=== PATIENT | male | born 1970 | race American Indian/Alaskan Native ===

== ENCOUNTER 2020-12-26 08:32 | Emergency (ER) | payer SELFPAY ==
--- NOTE | 2020-12-26 08:54 | Emergency Department Report ---
ED Asthma HPI - General Stated Complaint: ASTHMA PUI?: Yes Time Seen by Provider: 12/26/20 08:53 Source: patient Mode of arrival: Ambulatory Limitations: No Limitations - History of Present Illness Initial Comments: 50-year-old male with a past medical history of asthma and endocarditis (dx 15yrs ago) presents to the ER today with complaints of asthma attack. Patient states his symptoms started last night. Patient states that he has used his albuterol MDI several times without relief. He does have a nebulizer machine at home but states that it was not working. He reports cough, wheezing, chest tightness and mild shortness of breath. Patient denies any recent fever, or URI symptoms. He states that the last time he was admitted for his asthma was when he was a teenager. He reports no other symptoms at this time. MD Complaint: "asthma attack" -: Sudden (last night ) - Related Data Previous Rx's Medication Instructions Recorded Last Taken Type Albuterol Mdi (or & Nicu Only) 2 puff IH QID PRN #8.5 gram 12/26/20 Unknown Rx [ProAir HFA Inhaler] predniSONE [Deltasone] 20 mg PO QDAY #12 tab 12/26/20 Unknown Rx Allergies Allergy/AdvReac Type Severity Reaction Status Date / Time No Known Allergies Allergy Unverified 12/26/20 09:24 ED Review of Systems ROS: Stated complaint: ASTHMA Other details as noted in HPI Comment: All other systems reviewed and negative Constitutional: denies: chills, fever Eyes: denies: eye pain, eye discharge, vision change ENT: denies: ear pain, throat pain, dental pain, hearing loss, epistaxis, congestion Respiratory: cough, shortness of breath, wheezing Cardiovascular: other (chest tightness ) Gastrointestinal: denies: abdominal pain, nausea, diarrhea, constipation, hematemesis, melena, hematochezia Genitourinary: denies: urgency, dysuria, frequency, hematuria, discharge, testicular pain, testicular mass Musculoskeletal: denies: back pain, joint swelling, arthralgia Skin: denies: rash, lesions, change in color, change in hair/nails Neurological: denies: headache, weakness, numbness, paresthesias, confusion, abnormal gait, vertigo Psychiatric: denies: anxiety, depression Hematological/Lymphatic: denies: easy bleeding, easy bruising ED Past Medical Hx - Medications Home Medications: Home Medications Medication Instructions Recorded Confirmed Last Taken Type Albuterol Mdi (or & Nicu Only) 2 puff IH QID PRN #8.5 gram 12/26/20 Unknown Rx [ProAir HFA Inhaler] predniSONE [Deltasone] 20 mg PO QDAY #12 tab 12/26/20 Unknown Rx ED Physical Exam - General General appearance: alert, in no apparent distress - Head Head exam: Present: atraumatic, normocephalic, normal inspection - Eye Eye exam: Present: normal appearance, PERRL, EOMI Pupils: Present: normal accommodation - ENT ENT exam: Present: normal exam, mucous membranes moist, TM's normal bilaterally - Neck Neck exam: Present: normal inspection, full ROM - Respiratory Respiratory exam: Present: respiratory distress (mild ), wheezes (diffuse expiratory and inspiratory wheezing) - Cardiovascular Cardiovascular Exam: Present: regular rate, normal rhythm, normal heart sounds - GI/Abdominal GI/Abdominal exam: Present: soft. Absent: distended, tenderness, guarding, rebound - Neurological Exam Neurological exam: Present: alert, oriented X3, CN II-XII intact, normal gait - Psychiatric Psychiatric exam: Present: normal affect, normal mood - Skin Skin exam: Present: intact ED Course Vital Signs 12/26/20 12/26/20 12/26/20 08:32 10:34 11:51 Temperature 98.0 F Pulse Rate 98 H Respiratory 18 18 Rate Blood Pressure 117/72 Blood Pressure 111/80 [Left] O2 Sat by Pulse 100 94 Oximetry ED Medical Decision Making - Medical Decision Making Pt reports feeling better after first Neb treatment and solumedrol. Repeat Chest exam show improvement of wheezing. He is not in any distress. Pt ambulated while monitoring his O2 and it maintained at 94% RA 1152: Offered patient a second nebulizer treatment but he refused. He is ready to go home. Patient currently resting comfortably on the bed. His O2 sat on the monitor is at 98% on room air. He is not in any respiratory distress at this time. He is not toxic or ill-appearing and he is neurologically intact. Patient stable for discharge. He will be discharged home with a prescription for refill on his albuterol MDI, and some steroids for a few days. Patient encouraged to follow-up with his primary care doctor. Patient expressed understanding of instructions and agree with plan. Critical care attestation.: If time is entered above; I have spent that time in minutes in the direct care of this critically ill patient, excluding procedure time. ED Disposition Clinical Impression: Asthma exacerbation Disposition: DC-01 TO HOME OR SELFCARE Is pt being admited?: No Does the pt Need Aspirin: No Condition: Stable Instructions: Asthma Attack Additional Instructions: Take the prednisone as prescribed. Continue use your albuterol MDI. I recommend getting another nebulizer machine since the one you have at home is not working. You can always talk to your doctor about getting you another one. Return to the ER if your symptoms changes or worsens in any way. Prescriptions: predniSONE [Deltasone] 20 mg PO QDAY #12 tab Albuterol Mdi (or & Nicu Only) [ProAir HFA Inhaler] 2 puff IH QID PRN #8.5 gram PRN Reason: Shortness Of Breath Referrals: BECKA TIRADO MD [Staff Physician] - 3-5 Days Forms: Work/School Release Form(ED) Time of Disposition: 11:40
[2020-12-26] MEDS ORDERED: methylPREDNISolone Sod Succinate 125 MG/2 ML INJ IM ONE (10:00)
[2020-12-26] MEDS ORDERED: IPRATROPIUM/ALBUTEROL SULFATE 3 ML AMPUL.NEB IH ONE (10:33)
[2020-12-26 11:51] VITALS: BP 111/80
== END 2020-12-26 12:01 | disposition home or self-care (01) ==
LOC: ED 08:32
DX: J45.901 Unspecified asthma with (acute) exacerbation (principal); Z79.899 Other long term (current) drug therapy
CPT/HCPCS: 96372; 99282; J2930

== ENCOUNTER 2021-03-02 03:23 | Emergency (ER) | payer SELFPAY ==
[2021-03-02 03:57] VITALS: BP 127/89
[2021-03-02] MEDS ORDERED: ACETAMINOPHEN 500 MG TAB PO ONE (03:57)
[2021-03-02] MEDS ORDERED: IBUPROFEN 600 MG TAB PO ONE (03:57)
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
[2021-03-02] MEDS ORDERED: ONDANSETRON 4 MG ODT TAB PO ONE (05:43)
[2021-03-02] MEDS ORDERED: MORPHINE 4 MG/1 ML INJ IM ONE (05:43)
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
== END 2021-03-02 07:00 | disposition home or self-care (01) ==
LOC: ED 03:23
DX: S62.316A Displaced fracture of base of fifth metacarpal bone, right hand, initial encounter for closed fracture (principal); J45.909 Unspecified asthma, uncomplicated; Z79.899 Other long term (current) drug therapy; Z98.890 Other specified postprocedural states; Y04.8XXA Assault by other bodily force, initial encounter; Y93.89 Activity, other specified; Y92.89 Other specified places as the place of occurrence of the external cause; Y99.8 Other external cause status
CPT/HCPCS: 29125; 73100; 73130; 99283; J2270; Q0162

== ENCOUNTER 2022-02-10 11:43 | Emergency (ER) | payer SELFPAY ==
[2022-02-10 12:43] VITALS: BP 125/78
--- NOTE | 2022-02-11 09:14 | Electrocardiograph Report ---
[facility] Test Date: 2022-02-10 Test Time: 12:51:04 Pat Name: SIMA WOODRUFF Department: Room: Gender: M Scheduling Manager: 1 : 1970 Requested By: ANSELMO MAJOR Order Number: [id number] Reading MD: Angel Orellana Measurements Intervals [place] Rate: 81 P: 87 NH: 161 QRS: 84 QRSD: 74 T: 67 QT: 363 QTc: 421 Interpretive Statements Sinus rhythm nonspecific st-t No previous ECG available for comparison Electronically Signed On 02-11-2022 9:14:22 EDT by Angel Orellana
== END 2022-02-11 02:46 | disposition left against medical advice (07) ==
LOC: ED 11:43
DX: J45.909 Unspecified asthma, uncomplicated (principal); R07.9 Chest pain, unspecified; Z53.21 Procedure and treatment not carried out due to patient leaving prior to being seen by health care provider
CPT/HCPCS: 93005